=== PATIENT | male | born 1965 | race American Indian/Alaskan Native ===

== ENCOUNTER 2019-09-03 11:28 | Emergency (ER) | payer MEDICAID ==
[2019-09-03] MEDS ORDERED: ACETAMINOPHEN 325 MG TAB PO ONE (13:05)
--- NOTE | 2019-09-03 13:05 | Emergency Department Report ---
ED Headache [facility] - General Chief Complaint: Headache Stated Complaint: HEADACHE Time Seen by Provider: 09/03/19 12:50 - History of Present Illness Initial Comments: This is a 54-year-old -[place] male complaining of a severe headache that started last night. 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 He reports to tremors comes and go. In the tremors is still present patient denies any chest pain shortness of breath no nausea no vomiting. He did not take anything at home for the severe headache. His past medical history consists of hypertension and diabetes. Allergies/Adverse Reactions: Allergies No Known Allergies Allergy (Unverified 09/03/19 12:26) Home Medications: Ambulatory Orders methylPREDNISolone [Medrol 4MG DOSEPAK (21 tabs)] 4 mg PO DAILY #1 tab.ds.pk 09/03/19 ED Review of Systems ROS: Stated complaint: HEADACHE Other details as noted in HPI ED Past Medical Hx - Past Medical History Previous Medical History?: Yes Hx Hypertension: Yes - Surgical History Past Surgical History?: No - Medications Home Medications: Home Medications Medication Instructions Recorded Confirmed Last Taken Type methylPREDNISolone [Medrol 4MG 4 mg PO DAILY #1 tab.ds.pk 09/03/19 Unknown Rx DOSEPAK (21 tabs)] ED Physical Exam - General Limitations: No Limitations General appearance: alert, in no apparent distress - Head Head exam: Present: atraumatic, normal inspection - Eye Eye exam: Present: normal appearance, PERRL, EOMI - ENT ENT exam: Present: normal exam, mucous membranes moist - Neck Neck exam: Present: normal inspection, full ROM. Absent: tenderness - Respiratory Respiratory exam: Present: normal lung sounds bilaterally. Absent: respiratory distress, wheezes, rales, rhonchi, chest wall tenderness - Cardiovascular Cardiovascular Exam: Present: regular rate, normal heart sounds - GI/Abdominal GI/Abdominal exam: Present: soft, normal bowel sounds, hyperactive bowel sounds. Absent: distended, tenderness, guarding, rebound - Extremities Exam Extremities exam: Present: normal inspection, full ROM - Neurological Exam Neurological exam: Present: alert, oriented X3, other (right hand tremor) - Psychiatric Psychiatric exam: Present: normal affect - Skin Skin exam: Present: warm, dry, intact, normal color ED Course Vital Signs 09/03/19 09/03/19 09/03/19 12:23 12:30 14:56 Temperature 97.7 F Pulse Rate 109 H 86 Respiratory 17 18 Rate Blood Pressure 128/95 127/90 [Left] O2 Sat by Pulse 95 96 96 Oximetry - Reevaluation(s) Reevaluation #1: 09/03/19 15:02 All findings reviewed with Dr. Funez. Plan is to discharge patient home with Medrol Dose Pack . ED Medical Decision Making - Lab Data Result diagrams: 09/03/19 13:21 09/03/19 13:21 - EKG Data EKG shows normal: sinus rhythm Rate: tachycardia (103) - Radiology Data Radiology results: report reviewed CT head FINDINGS: BRAIN/INTRACRANIAL STRUCTURES: Unenhanced CT images of the brain demonstrate no evidence of acute intracranial abnormality. Ventricles and sulci are normal in size and shape. There is no evidence of acute ischemic injury, hemorrhage, or mass. There are no abnormal extra- axial fluid collections. EXTRACRANIAL STRUCTURES: Unremarkable. IMPRESSION: Negative unenhanced CT of the brain. - Medical Decision Making All findings and results discussed with Dr. Funez. Plan of care is to discharge home with Medrol dose pack for inflammation. follow up with PCP and increase oral hydration Critical Care Time: No Critical care attestation.: If time is entered above; I have spent that time in minutes in the direct care of this critically ill patient, excluding procedure time. ED Disposition Clinical Impression: Headache Qualifiers: Headache type: tension-type Headache chronicity pattern: acute headache Intractability: not intractable Qualified Code(s): G44.209 - Tension-type headache, unspecified, not intractable Disposition: DC-01 TO HOME OR SELFCARE Is pt being admited?: No Does the pt Need Aspirin: No Condition: Stable Instructions: Tension Headache (ED), Acute Headache (ED) Additional Instructions: Increase your water intake to 6-8 cups of water daily. Follow up with your Doctor in 2-3 days. Return to the ER for any worsening symptoms Prescriptions: methylPREDNISolone [Medrol 4MG DOSEPAK (21 tabs)] 4 mg PO DAILY #1 tab.ds.pk
[2019-09-03 13:49] LABS: Hematocrit 46.6 % (35.5-45.6); Hemoglobin 15.4 gm/dl (11.8-15.2); Mean Corpuscular HGB Conc 33 % (32-34); Mean Corpuscular Volume 82 fl (84-94); Platelet Count 195 K/mm3 (140-440); Red Blood Count 5.71 M/mm3 (3.65-5.03); Red Cell Distribution Width 14.6 % (13.2-15.2)
--- NOTE | 2019-09-03 13:55 | Cat Scan Report ---
CT BRAIN: 09/03/2019 INDICATION / CLINICAL INFORMATION: MAIN: headache x 2 weeks hx of cva. COMPARISON: None available. FINDINGS: BRAIN/INTRACRANIAL STRUCTURES: Unenhanced CT images of the brain demonstrate no evidence of acute int racranial abnormality. Ventricles and sulci are normal in size and shape. There is no evidence of acute ischemic injury, hemorrhage, or mass. There are no abnormal extra-axial fluid collections. EXTRACRANIAL STRUCTURES: Unremarkable. IMPRESSION: Negative unenhanced CT of the brain. All CT scans at this location are performed using dose reduction to ALARA by means of automated expos ure control. Signer Name: Crow Jeffers MD Signed: 09/03/2019 1:50 PM Workstation Name: [id number]
[2019-09-03 13:58] LABS: INR 1.12 (0.87-1.13)
[2019-09-03 13:59] LABS: Partial Thromboplastin Time 27.3 Sec. (24.2-36.6)
[2019-09-03 14:01] LABS: Alanine Aminotransferase 12 units/L (7-56); Albumin 4.3 g/dL (3.9-5); BUN/Creatinine Ratio 9; Blood Urea Nitrogen 6 mg/dL (9-20); Calcium 9.2 mg/dL (8.4-10.2); Hemolysis Index 6
[2019-09-03 15:00] VITALS: BP 127/90
== END 2019-09-03 15:45 | disposition home or self-care (01) ==
LOC: ED 11:28
DX: R51 Headache (principal); I10 Essential (primary) hypertension
CPT/HCPCS: 36415; 70450; 80053; 85027; 85610; 85730; 93005; 93010

== ENCOUNTER 2022-05-03 02:20 | Emergency (ER) | payer MEDICAID ==
[2022-05-03] MEDS ORDERED: SODIUM CHLORIDE 0.9% 1000 ML 1,000 ML IV ONE (03:13)
[2022-05-03] MEDS ORDERED: MORPHINE 4 MG/1 ML INJ IV ONE (03:13)
[2022-05-03] MEDS ORDERED: ONDANSETRON 4 MG/2 ML INJ IV ONE (03:13)
--- NOTE | 2022-05-03 03:49 | XRay Report ---
CHEST 1 VIEW 05/03/2022 2:42 AM INDICATION / CLINICAL INFORMATION: Chest Pain. COMPARISON: None available. FINDINGS: SUPPORT DEVICES: None. HEART / MEDIASTINUM: No significant abnormality. LUNGS / PLEURA: No significant pulmonary or pleural abnormality. No pneumothorax. ADDITIONAL FINDINGS: No significant additional findings. IMPRESSION: 1. No acute findings. Signer Name: Jaylen Barnes MD Signed: 05/03/2022 3:45 AM Workstation Name: [id number]
--- NOTE | 2022-05-03 04:21 | Cat Scan Report ---
CT HEAD WITHOUT CONTRAST INDICATION / CLINICAL INFORMATION: Headache. TECHNIQUE: All CT scans at this location are performed using CT dose reduction for ALARA by means of automated e xposure control. COMPARISON: None available. FINDINGS: Acute intracranial parenchymal hemorrhage within the left cerebellum measuring 2.4 x 2.1 cm with mild surrounding vasogenic edema. The ventricles are normal in size and appearance. No midline shift or m ass effect. Mild ethmoid sinus disease is seen. Visualized orbits appear normal. ADDITIONAL FINDINGS: None. IMPRESSION: 1. Acute intracranial parenchymal hemorrhage involving the left cerebellum measuring 2.4 x 2.1 cm . A follow-up to exclude underlying lesion is recommended. CRITICAL RESULT: Time of Discovery (AIR CHIEF MARSHAL/CDT): 314 Time of Communication (AIR CHIEF MARSHAL/CDT): 314 Licensed Practitioner Receiving Report: Nurse Campuzano Read-Back Performed: Yes. Signer Name: Jaylen Barnes MD Signed: 05/03/2022 4:17 AM Workstation Name: [id number]
[2022-05-03 04:42] LABS: Alanine Aminotransferase 14 units/L (7-56); Albumin 3.9 g/dL (3.9-5); Blood Urea Nitrogen 7 mg/dL (9-20); Calcium 8.7 mg/dL (8.4-10.2); Hemolysis Index 384
[2022-05-03 04:43] LABS: BUN/Creatinine Ratio 10
--- NOTE | 2022-05-03 04:48 | Emergency Department Report ---
ED General Adult HPI - General Chief complaint: Headache Stated complaint: HIGH BLOOD PRESSURE PUI?: No Time Seen by Provider: 05/03/22 03:12 Source: patient, EMS Mode of arrival: Stretcher Limitations: No Limitations - History of Present Illness Initial comments: Reporting severe headache and high blood pressure all week. -: Gradual, days(s) Location: head Radiation: non-radiation Severity scale (0 -10): 9 Quality: aching Consistency: constant Improves with: none Worsens with: none Associated Symptoms: headaches. denies: denies other symptoms, confusion, chest pain, loss of appetite, malaise - Related Data Previous Rx's Medication Instructions Recorded Last Taken Type methylPREDNISolone [Medrol 4MG 4 mg PO DAILY #1 tab.ds.pk 09/03/19 Unknown Rx DOSEPAK (21 tabs)] Allergies Allergy/AdvReac Type Severity Reaction Status Date / Time No Known Allergies Allergy Unverified 09/03/19 12:26 ED Review of Systems ROS: Stated complaint: HIGH BLOOD PRESSURE Other details as noted in HPI Constitutional: denies: chills, fever Eyes: denies: eye pain, eye discharge, vision change ENT: denies: ear pain, throat pain Respiratory: denies: cough, shortness of breath, wheezing Cardiovascular: denies: chest pain, palpitations Endocrine: no symptoms reported Gastrointestinal: denies: abdominal pain, nausea, diarrhea Genitourinary: denies: urgency, dysuria Musculoskeletal: denies: back pain, joint swelling, arthralgia Skin: denies: rash, lesions Neurological: denies: headache, weakness, paresthesias Psychiatric: denies: anxiety, depression Hematological/Lymphatic: denies: easy bleeding, easy bruising ED Past Medical Hx - Past Medical History Previous Medical History?: Yes Hx Hypertension: Yes Hx Headaches / Migraines: Yes Additional medical history: Aneurysm - Surgical History Past Surgical History?: No - Social History Smoking Status: Never Smoker Substance Use Type: None - Medications Home Medications: Home Medications Medication Instructions Recorded Confirmed Last Taken Type methylPREDNISolone [Medrol 4MG 4 mg PO DAILY #1 tab.ds.pk 09/03/19 Unknown Rx DOSEPAK (21 tabs)] ED Physical Exam - General Limitations: No Limitations General appearance: alert, in distress - Head Head exam: Present: atraumatic, normocephalic - Eye Eye exam: Present: normal appearance - ENT ENT exam: Present: mucous membranes moist - Neck Neck exam: Present: normal inspection - Respiratory Respiratory exam: Present: normal lung sounds bilaterally. Absent: respiratory distress - Cardiovascular Cardiovascular Exam: Present: regular rate, normal rhythm. Absent: systolic murmur, diastolic murmur, rubs, gallop - GI/Abdominal GI/Abdominal exam: Present: soft, normal bowel sounds - Rectal Rectal exam: Present: deferred - Extremities Exam Extremities exam: Present: normal inspection - Back Exam Back exam: Present: normal inspection - Neurological Exam Neurological exam: Present: alert, oriented X3 - Psychiatric Psychiatric exam: Present: normal affect, normal mood - Skin Skin exam: Present: warm, dry, intact, normal color. Absent: rash ED Course Vital Signs 05/03/22 05/03/22 05/03/22 02:21 03:47 04:09 Temperature 98 F Pulse Rate 90 89 Respiratory 18 18 Rate Blood Pressure 168/100 142/94 Blood Pressure [Left] O2 Sat by Pulse 98 99 Oximetry 05/03/22 05/03/22 05/03/22 04:30 04:35 04:42 Temperature 98 F Pulse Rate 81 77 81 Respiratory 25 H 18 25 H Rate Blood Pressure Blood Pressure 139/89 142/92 157/89 [Left] O2 Sat by Pulse 99 99 98 Oximetry 05/03/22 05/03/22 05/03/22 04:46 04:49 04:51 Temperature Pulse Rate 81 77 66 Respiratory Rate Blood Pressure Blood Pressure 157/89 142/92 143/92 [Left] O2 Sat by Pulse Oximetry 05/03/22 05/03/22 05/03/22 05:00 05:30 05:45 Temperature 98.2 F 98 F Pulse Rate 66 67 73 Respiratory 18 14 Rate Blood Pressure 147/87 Blood Pressure 143/92 128/73 129/89 [Left] O2 Sat by Pulse 98 98 Oximetry 05/03/22 05/03/22 06:08 06:10 Temperature Pulse Rate 66 66 Respiratory 17 17 Rate Blood Pressure Blood Pressure 135/86 135/86 [Left] O2 Sat by Pulse 98 98 Oximetry ED Medical Decision Making - Lab Data Result diagrams: 05/03/22 03:45 05/03/22 03:45 - EKG Data -: EKG Interpreted by [place] EKG shows normal: sinus rhythm Rate: normal - EKG Data Interpretation: LVH - Radiology Data Radiology results: report reviewed, image reviewed - Medical Decision Making work up showed ICH , labetalol given , paged neuro surgery in [facility] transfer [facility] transfer spoke with dr deleon over [place] , accepted transfer , will keep SBP below 150 , use nicardipine drip if needed covid test Critical care attestation.: If time is entered above; I have spent that time in minutes in the direct care of this critically ill patient, excluding procedure time. ED Disposition Clinical Impression: Uncontrolled hypertension, Intracerebral hemorrhage, Headache Disposition: 51 HOSPICE/MEDICAL FACILITY Is pt being admited?: No Does the pt Need Aspirin: No Condition: Stable Instructions: Hypertension (ED)
[2022-05-03 05:34] LABS: INR 1.03 (0.87-1.13)
[2022-05-03 05:56] LABS: Basophils # (Auto) 0.1 K/mm3 (0.0-0.1); Basophils % (Auto) 0.7 % (0.0-1.8); Eosinophils # (Auto) 0.1 K/mm3 (0.0-0.4); Eosinophils % (Auto) 0.5 % (0.0-4.3); Hematocrit 45.8 % (35.5-45.6); Hemoglobin 15.1 gm/dl (11.8-15.2); Lymphocytes # (Auto) 1.5 K/mm3 (1.2-5.4); Lymphocytes % (Auto) 13.8 % (13.4-35.0); Mean Corpuscular HGB Conc 33 % (32-34); Mean Corpuscular Volume 83 fl (84-94); Monocytes # (Auto) 0.8 K/mm3 (0.0-0.8); Monocytes % (Auto) 7.3 % (0.0-7.3); Red Blood Count 5.54 M/mm3 (3.65-5.03); Red Cell Distribution Width 14.2 % (13.2-15.2)
[2022-05-03] MEDS ORDERED: niCARdipine DRIP 40 MG/200 ML BAG IV ONE (06:47)
[2022-05-03 07:39] LABS: Platelet Count 191 K/mm3 (140-440)
[2022-05-03 12:25] VITALS: BP 132/82
--- NOTE | 2022-05-04 14:40 | Electrocardiograph Report ---
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
== END 2022-05-03 12:24 | disposition hospice, inpatient (51) ==
LOC: ED 02:20
DX: I10 Essential (primary) hypertension (principal); R51.9 Headache, unspecified; I61.9 Nontraumatic intracerebral hemorrhage, unspecified; Z20.822 Contact with and (suspected) exposure to COVID-19
CPT/HCPCS: 36415; 70450; 71045; 80053; 83690; 84484; 85025; 85610; 93005; 96365; 96375; 96376; 99285; J2270; J2405; J3490; J7030; U0003; 96366